=== PATIENT | female | born 1975 | race Caucasian/White ===

== ENCOUNTER 2017-10-03 21:00 | Emergency (ER) | payer BC ==
[2017-10-03] MEDS ORDERED: LIDOCAINE 2% 10 ML MDV SUBQ STA (21:40)
[2017-10-03] MEDS ORDERED: TETANUS/DIPHTHERIA/PERTUSSIS 0.5 ML SYRINGE IM ONE (21:47)
--- NOTE | 2017-10-03 22:05 | XRAY Report ---
Procedure Date: 10/03/2017 Accession Number: [id number] / [id number] Procedure: XR - Toe(s) RT CPT Code: FULL RESULT: EXAM: RIGHT TOE RADIOGRAPHY EXAM DATE: 10/03/2017 09:39 PM. CLINICAL HISTORY: Pain COMPARISON: None. TECHNIQUE: 3 views. FINDINGS: Bones: No fracture or focal bony lesion. Joints: No evidence of dislocation. Soft Tissues: No unexpected soft tissue findings. IMPRESSION: No evidence of fracture or dislocation. RADIA
--- NOTE | 2017-10-03 22:19 | ED Physician Documentation ---
PD HPI LOWER EXT INJURY - Stated complaint Stated Complaint: TOE INJURY - Chief complaint Chief Complaint: Wound - History obtained from History obtained from: Patient, Family - History of Present Illness PD HPI LOW EXT INJURY LOCATION: Right, Toe (2nd) Type of injury: Crush (steel bar) Where injury occurred: Home Timing - onset: How many hours ago (1) Timing - duration: Hours (1) Timing - details: Abrupt onset Pain level max: 8 Pain level now: 2 Improved by: Rest, Ice Worsened by: Moving, Palpating Associated symptoms: No: Weakness, Numbness, Tingling, Swelling Contributing factors: No: Anticoagulated Recently seen: Not recently seen - Additional information Additional information: Patient dropped a steel bar on her toe causing a laceration. 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 : None HEENT: None Psych: None Musculoskeletal: None Derm: None - Past Surgical History Past Surgical History: No HEENT: Tonsil/Adenoidectomy - Present Medications Home Medications: Ambulatory Orders Medication Instructions Recorded Confirmed Acyclovir 400 mg PO DAILY 08/23/14 11/01/15 Diphenhydramine HCl [Benadryl] 50 mg PO 5XD 08/23/14 08/23/14 Montelukast Sodium [Singulair] 10 mg PO DAILY 08/23/14 08/23/14 hydrOXYzine PAMOATE [Vistaril] 25 - 50 mg PO Q6H PRN #20 capsule 08/23/14 lamoTRIgine [Lamictal] 150 mg PO QDAC 08/23/14 11/01/15 predniSONE [Prednisone] 0 08/23/14 08/23/14 Dexamethasone 16 mg 11/01/15 Oxycodone HCl 11/01/15 - Allergies Allergies/Adverse Reactions: Allergies Allergy/AdvReac Type Severity Reaction Status Date / Time amoxicillin Allergy Rash Verified 10/03/17 21:20 Sulfa (Sulfonamide Allergy Hives Verified 10/03/17 21:20 Antibiotics) - Social History Does the pt smoke?: No Smoking Status: Never smoker Does the pt drink ETOH?: No Does the pt have substance abuse?: No - Immunizations Immunizations are current?: No Immunizations: TDAP >10years/unknown - POLST Patient has POLST: No PD ED PE NORMAL - Vitals Vital signs reviewed: Yes - General General: Alert and oriented X 3, No acute distress - Derm Derm: Warm and dry - Extremities Extremities: Other (Right foot - Diffuse tenderness over the right second toe. Also a small skin tear is present. Bleeding controlled. No subungual hematoma. Nail is intact NVI) - Neuro Neuro: Alert and oriented X 3 Results - Vitals Vitals: Oxygen O2 Source Room air - Rads (name of study) Right second toe x-ray Radiology: Prelim report reviewed, EMP read contemporaneously, See rad report ( Normal) Procedures - Laceration (location) Right second toe Length in cm: 0.5 Wound type: Curved, Superficial, Clean Neurovascular status: Sensory intact, Motor intact, Vascular intact Tendon involvement: Tendon intact. No: Tendon Injury Anesthesia: Lidocaine 2% Wound Preparation: Irrigated copiously NS Skin layer closure: Dermabond Other: Patient tolerated well, No complications, Neurovascular intact Complexity: Simple PD MEDICAL DECISION MAKING - ED course Complexity details: reviewed results, considered differential, d/w patient ED course: Patient is a 42-year-old female with a crush injury to the right second toe. No fracture on x-ray. Did have a small skin tear which was repaired with Dermabond. We will continue supportive care and follow-up with her doctor. Warnings of infection and instructions on wound care given at bedside. Also counseled on how to minimize scarring. Patient counseled regarding signs and symptoms for which I believe and urgent re-evaluation would be necessary. Patient with good understanding of and agreement to plan and is comfortable going home at this time This document was made in part using voice recognition software. While efforts are made to proofread this document, sound alike and grammatical errors may occur. Tdap given - Sepsis Event Vital Signs: Oxygen O2 Source Room air Departure - Departure Disposition: 01 Home, Self Care Clinical Impression: Injury, crush, toe Qualifiers: Encounter type: initial encounter Laterality: right Qualified Code(s): S97.101A - Crushing injury of unspecified right toe(s), initial encounter Condition: Good Instructions: ED Crush Injury Toe No Fx Follow-Up: Garett Tuttle MD [Primary Care Provider] - As Needed Comments: Return if you worsen. Keep the toe clean. Your xrays are normal tonight. Return especially for redness, swelling or drainage from the wound. Discharge Date/Time: 10/03/17 22:00
[2017-10-03 22:27] VITALS: BP 130/66
== END 2017-10-03 22:00 | disposition home or self-care (01) ==
LOC: ED 21:00
DX: S97.121A Crushing injury of right lesser toe(s), initial encounter (principal); W20.8XXA Other cause of strike by thrown, projected or falling object, initial encounter; Y92.009 Unspecified place in unspecified non-institutional (private) residence as the place of occurrence of the external cause
CPT/HCPCS: 12001; 73660; 90471; 99281; 99283

== ENCOUNTER 2018-04-24 16:41 | Outpatient (CLI) | payer BC ==
--- NOTE | 2018-04-25 00:45 | XRAY Report ---
Reason: LEFT ANKLE PAIN Procedure Date: 04/24/2018 Accession Number: [id number] / [id number] Procedure: XR - Ankle 3 View LT CPT Code: FULL RESULT: EXAM: LEFT ANKLE RADIOGRAPHY EXAM DATE: 04/24/2018 05:15 PM. CLINICAL HISTORY: LEFT ANKLE PAIN. COMPARISON: None. TECHNIQUE: 3 views. FINDINGS: Bones: Normal. No fractures or bone lesions. Joints: Normal. No effusion. No subluxations. The ankle mortise is normally aligned. Soft Tissues: Normal. No soft tissue swelling. IMPRESSION: Normal ankle radiography. RADIA
== END 2018-04-24 16:42 | disposition home or self-care (01) ==
LOC: DI 16:41
PROVIDERS: ATTEND Family Medicine
DX: M25.572 Pain in left ankle and joints of left foot (principal)

== ENCOUNTER 2019-07-17 15:07 | Outpatient (CLI) | payer OTHER ==
--- NOTE | 2019-07-18 09:34 | XRAY Report ---
Reason: COUGH, SOB Procedure Date: 07/17/2019 Accession Number: [id number] / [id number] Procedure: XR - Chest 2 View X-Ray CPT Code: 27668 Final Report FULL RESULT: EXAM: CHEST RADIOGRAPHY EXAM DATE: 07/17/2019 04:19 PM. CLINICAL HISTORY: Dyspnea and cough. COMPARISON: None. TECHNIQUE: 2 views. FINDINGS: Lungs/Pleura: No focal opacities evident. No pleural effusion. No pneumothorax. Normal volumes. Mediastinum: Heart and mediastinal contours are unremarkable. Other: None. IMPRESSION: Normal 2-view chest radiography. RADIA
== END 2019-07-17 15:08 | disposition home or self-care (01) ==
LOC: DI 15:07
PROVIDERS: ATTEND Family Medicine
DX: R06.02 Shortness of breath (principal)
CPT/HCPCS: 71046

== ENCOUNTER 2020-10-19 19:39 | Outpatient (CLI) | payer OTHER | END 2020-10-19 19:40 | disposition home or self-care (01) | LOC: COV 19:39 | PROVIDERS: ATTEND Urology | DX: Z01.812 Encounter for preprocedural laboratory examination (principal); Z20.822 Contact with and (suspected) exposure to COVID-19 ==

== ENCOUNTER 2021-02-14 14:52 | Outpatient (CLI) | payer OTHER ==
--- NOTE | 2021-02-14 16:38 | XRAY Report ---
PROCEDURE: Chest 2 View X-Ray INDICATIONS: DYSPNEA TECHNIQUE: 2 view(s) of the chest. COMPARISON: None. FINDINGS: Surgical changes and devices: None. Lungs and pleura: No pleural effusions or pneumothorax. Lungs are clear. Mediastinum: Mediastinal contours are normal. Heart size is normal. Bones and chest wall: No suspicious bony abnormalities. Soft tissues appear unremarkable. IMPRESSION: No acute pulmonary process. Reviewed by: Rima Rodriguez MD on 02/14/2021 4:37 PM [facility] Approved by: Rima Rodriguez MD on 02/14/2021 4:37 PM [facility] Station ID: [id number]
== END 2021-02-14 14:53 | disposition home or self-care (01) ==
LOC: DI 14:52
PROVIDERS: ATTEND Family Medicine
DX: R06.00 Dyspnea, unspecified (principal)

== ENCOUNTER 2021-05-24 12:17 | Emergency (ER) | payer OTHER ==
[2021-05-24 12:23] VITALS: BP 145/87
--- NOTE | 2021-05-24 12:50 | ED Physician Documentation ---
PD HPI UPPER EXT INJURY - Stated complaint Stated Complaint: LT ARM SWELLING/ITCHING - Chief complaint Chief Complaint: Ext Problem - History obtained from History obtained from: Patient - Additonal information Additional information: 3 days rash LUE p enbrel injection. Started 3 days after injection. This is 4th dose total, and each time has a bit more reaction to it. 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 : None HEENT: None Psych: None Musculoskeletal: None Derm: None - Past Surgical History Past Surgical History: No HEENT: Tonsil/Adenoidectomy - Present Medications Home Medications: Ambulatory Orders Medication Instructions Recorded Confirmed Acyclovir 400 mg PO DAILY 08/23/14 11/01/15 Montelukast Sodium [Singulair] 10 mg PO DAILY 08/23/14 08/23/14 diphenhydrAMINE HCl [Benadryl] 50 mg PO 5XD 08/23/14 08/23/14 hydrOXYzine PAMOATE [Vistaril] 25 - 50 mg PO Q6H PRN #20 capsule 08/23/14 lamoTRIgine [Lamictal] 150 mg PO QDAC 08/23/14 11/01/15 predniSONE [Prednisone] 0 08/23/14 08/23/14 Oxycodone HCl 11/01/15 dexAMETHasone [Dexamethasone] 16 mg 11/01/15 Doxepin [SINEquan] 10 mg PO TID PRN #20 cap 05/24/21 predniSONE [Deltasone] 60 mg PO DAILY 2 Days #6 tablet 05/24/21 - Allergies Allergies/Adverse Reactions: Allergies Allergy/AdvReac Type Severity Reaction Status Date / Time amoxicillin Allergy Rash Verified 05/24/21 12:24 hydroxychloroquine Allergy Rash Verified 05/24/21 12:24 oxycodone Allergy Hives Verified 05/24/21 12:24 Sulfa (Sulfonamide Allergy Hives Verified 05/24/21 12:24 Antibiotics) - Social History Does the pt smoke?: No Smoking Status: Never smoker Does the pt drink ETOH?: No Does the pt have substance abuse?: No - Immunizations Immunizations are current?: No Immunizations: TDAP >10years/unknown - POLST Patient has POLST: No PD ED PE NORMAL - Vitals Vital signs reviewed: Yes - General General: Alert and oriented X 3, No acute distress - Extremities Extremities: Other (Mildly red area about palm sized over the left posterior deltoid, not to angry.) - Neuro Neuro: Alert and oriented X 3, Normal speech Results - Vitals Vitals: Vital Signs - 24 hr 05/24/21 12:20 Temperature 36.3 C L Heart Rate 117 H Respiratory 16 Rate Blood Pressure 145/87 H O2 Saturation 98 Oxygen O2 Source Room air PD MEDICAL DECISION MAKING - ED course ED course: Symptoms more consistent with allergic reaction given that she has had crescendo symptoms of this with other injections and it is more itchy than painful and no fevers. Will treat with doxepin and steroids. Departure - Departure Disposition: 01 Home, Self Care Clinical Impression: Allergy to local anesthetic Condition: Good Record reviewed to determine appropriate education?: Yes Instructions: ED Allergic Reaction Local Other Prescriptions: predniSONE [Deltasone] 60 mg PO DAILY 2 Days #6 tablet Doxepin [SINEquan] 10 mg PO TID PRN #20 cap PRN Reason: Itching Comments: As discussed, this is more consistent with an allergic reaction to the Enbrel that it is an infection. That said if it becomes more painful or if you develop a fever please return for reevaluation. Continue Zyrtec and to that I am adding doxepin which is stronger than Benadryl for the itching and a few days worth of prednisone. Follow-up with your behavioral therapy coordinator for consideration for alternative therapies or adjustment to the therapy. I sent your prescription electronically to [facility] in [place].
[2021-05-24] MEDS ORDERED: predniSONE 20 MG TABLET PO STA (13:00)
== END 2021-05-24 13:46 | disposition home or self-care (01) ==
LOC: ED 12:17
DX: R21 Rash and other nonspecific skin eruption (principal); T41.1X5A Adverse effect of intravenous anesthetics, initial encounter
CPT/HCPCS: 99282; J7512

== ENCOUNTER 2021-08-19 17:11 | Emergency (ER) | payer OTHER ==
[2021-08-19 17:34] LABS: BASOPHILS % (AUTO) 0.3 %; EOSINOPHILS % (AUTO) 0.6 %; HCT - HEMATOCRIT 45.6 % (37.0-47.0); HGB - HEMOGLOBIN 15.6 g/dL (12.0-16.0); MEAN CORPUSCULAR HEMOGLOBIN 31.1 pg (27.0-31.0); MEAN CORPUSCULAR HGB CONC 34.2 g/dL (32.0-36.0); MEAN PLATELET VOLUME 9.8 fL (7.9-10.8); MONOCYTES % (AUTO) 4.5 %; NEUTROPHILS % (AUTO) 51.2 %; PLT - PLATELET COUNT 275 10^3/uL (130-450); RED BLOOD COUNT 5.01 10^6/uL (4.20-5.40); RED CELL DISTRIBUTION WIDTH 12.9 % (12.0-15.0); WHITE BLOOD COUNT 14.3 x10^3/uL (4.8-10.8)
[2021-08-19 17:36] LABS: ABNORMAL LYMPHS % (MANUAL) 0 %; BAND NEUTROPHILS % (MANUAL) 0 %
[2021-08-19 17:53] LABS: ALBUMIN 4.3 g/dL (3.2-5.5); ALBUMIN/GLOBULIN RATIO 1.4 (1.0-2.2); BILIRUBIN,TOTAL 0.6 mg/dL (0.2-1.0); CALCIUM 9.3 mg/dL (8.5-10.3); MAGNESIUM 1.9 mg/dL (1.7-2.8); POTASSIUM 3.5 mmol/L (3.5-5.0); TOTAL PROTEIN 7.4 g/dL (6.7-8.2)
--- OUTSIDE RECORDS SUMMARY | 2021-08-19 18:06 | EXTERNAL MEDICAL SUMMARY RPT | Continuity of Care Document ---
:1975 Author Organization [facility] Address [address] [place] [address] Phone Care Team Providers Name Role Phone Marry Unavailable Unavailable Allergies No information. Encounters No information. Medications date description facility [id number] {21 (Methylprednisolone 4 MG Oral Table t) } [facility] Problems Procedures date description facility [id number] [facility] Results No information. Vital Signs date measurement value source 20210814 weight_standard 88 lb 20210814 weight_metric 39.91 kg 20210814 temperature_standard 97 F 20210814 temperature_metric 36.11 C 20210814 respiration_rate 29 /min 20210814 height_standard 67 in 20210814 height_metric 170.18 cm 20210814 heart_rate 97 /min 20210814 BP_systolic 151 mm[Hg] 20210814 BP_diastolic 90 mm[Hg] 20210814 BMI 30.4 kg/m2
--- NOTE | 2021-08-19 18:22 | XRAY Report ---
PROCEDURE: Chest 1 View X-Ray INDICATIONS: Chest pain TECHNIQUE: One view of the chest was acquired. COMPARISON: 02/14/2021, 07/17/2019 FINDINGS: Surgical changes and devices: None. Lungs and pleura: No pleural effusions or pneumothorax. Lungs are clear. Mediastinum: Mediastinal contours appear normal. Heart size is normal. Bones and chest wall: No suspicious bony lesions. Overlying soft tissues appear unremarkable. IMPRESSION: No acute cardiopulmonary abnormality. Reviewed by: Donaldo Cobos MD on 08/19/2021 6:20 PM PDT Approved by: Doanldo Cobos MD on 08/19/2021 6:20 PM PDT Station ID: [id number]
[2021-08-19 18:30] LABS: BASOPHILS # (MANUAL) 0.1 10^3/uL (0-0.1); BASOPHILS % (MANUAL) 1 %; EOSINOPHILS # (MANUAL) 0.1 10^3/uL (0-0.7); LYMPHOCYTES # (MANUAL) 6.4 10^3/uL (1.5-3.5); LYMPHOCYTES % (MANUAL) 31 %; MONOCYTES # (MANUAL) 0.4 10^3/uL (0.0-1.0); NEUTROPHILS # (MANUAL) 7.2 10^3/uL (1.5-6.6); PLATELET ESTIMATE, MANUAL NORMAL (130-450,000) (NORMAL); PLATELET MORPHOLOGY NORMAL APPEARANCE (NORMAL); RBC MORPHOLOGY (MULTIPLE) NORMAL APPEARANCE (NORMAL); REACTIVE LYMPHS % (MANUAL) 14 %; WBC MORPHOLOGY (MULTIPLE) NORMAL APPEARANCE (NORMAL)
[2021-08-19 18:31] LABS: DIFFERENTIAL COMMENT MANUAL DIFFERENTIAL
--- NOTE | 2021-08-19 19:23 | ED Physician Documentation ---
History of Present Illness - Stated complaint Stated Complaint: HIGH BP,SOA,CRAMPING,HEADACHE - Chief complaint Chief Complaint: Cardiac - Additonal information Additional information: 46-year-old female presents emergency department for evaluation of abdominal bloating and feeling gassy as well as concerns of her blood pressures been elevated. About 10 days ago she did receive an infusion for RA through the clinic and [place]. About 2 days later she began feeling unwell and was seen at [facility]. While there she received IV fluids Benadryl Pepcid and was discharged on an methylprednisolone Dosepak for suspicion of an allergic reaction. Despite taking this she is continued to feel unwell and has been checking her blood pressures at home and found that they are essentially 160/110. She denies any previous history of hypertension. She denies chest pain or shortness of air. She states that her abdomen is bloated but she does not have diarrhea or dysuria. Review of Systems Constitutional: denies: Fever, Chills Nose: reports: Reviewed and negative Throat: reports: Reviewed and negative Cardiac: reports: Reviewed and negative Respiratory: reports: Reviewed and negative GI: reports: Abdominal Pain. 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 : None HEENT: None Psych: None Musculoskeletal: None Derm: None - Past Surgical History Past Surgical History: No HEENT: Tonsil/Adenoidectomy - Present Medications Home Medications: Ambulatory Orders Medication Instructions Recorded Confirmed Acyclovir 400 mg PO DAILY 08/23/14 11/01/15 Montelukast Sodium [Singulair] 10 mg PO DAILY 08/23/14 08/23/14 diphenhydrAMINE HCl [Benadryl] 50 mg PO 5XD 08/23/14 08/23/14 hydrOXYzine PAMOATE [Vistaril] 25 - 50 mg PO Q6H PRN #20 capsule 08/23/14 lamoTRIgine [Lamictal] 150 mg PO QDAC 08/23/14 11/01/15 predniSONE [Prednisone] 0 08/23/14 08/23/14 Oxycodone HCl 11/01/15 dexAMETHasone [Dexamethasone] 16 mg 11/01/15 Doxepin [SINEquan] 10 mg PO TID PRN #20 cap 05/24/21 predniSONE [Deltasone] 60 mg PO DAILY 2 Days #6 tablet 05/24/21 - Allergies Allergies/Adverse Reactions: Allergies Allergy/AdvReac Type Severity Reaction Status Date / Time amoxicillin Allergy Rash Verified 05/24/21 12:24 hydroxychloroquine Allergy Rash Verified 05/24/21 12:24 oxycodone Allergy Hives Verified 05/24/21 12:24 Sulfa (Sulfonamide Allergy Hives Verified 05/24/21 12:24 Antibiotics) - Social History Does the pt smoke?: No Smoking Status: Never smoker Does the pt drink ETOH?: No Does the pt have substance abuse?: No - Immunizations Immunizations are current?: No Immunizations: TDAP >10years/unknown - POLST Patient has POLST: No PD ED PE NORMAL - General General: Alert and oriented X 3, No acute distress, Well developed/nourished - HEENT HEENT: Atraumatic, Ears normal - Neck Neck: Supple, no meningeal sign, No JVD - Cardiac Cardiac: RRR, No murmur - Respiratory Respiratory: No respiratory distress, Clear bilaterally - Abdomen Abdomen: Normal bowel sounds, Soft, Non tender, Non distended - Derm Derm: Normal color, Warm and dry, No rash - Extremities Extremities: No deformity - Neuro Neuro: Alert and oriented X 3 Eye Opening: Spontaneous Motor: Obeys Commands Verbal: Oriented GCS Score: 15 - Psych Psych: Normal mood Results - Vitals Vitals: Vital Signs - 24 hr 08/19/21 17:18 Temperature 36.6 C Heart Rate 90 Respiratory 18 Rate Blood Pressure 153/112 H O2 Saturation 99 Oxygen O2 Source Room air - EKG (time done) 1719 Rate: Rate (enter#) (99) Rhythm: NSR Peer[place]: Normal Intervals: Normal MS. No: Prolonged QT QRS: Normal Ischemia: Non specific changes (T wave flattening) Compare to prior EKG: Old EKG unavailable Computer interpretation: Agree with computer - Labs Labs: Laboratory Tests 08/19/21 08/19/21 08/19/21 17:29 17:29 17:29 WBC 14.3 H RBC 5.01 Hgb 15.6 Hct 45.6 MCV 91.0 MCH 31.1 H MCHC 34.2 RDW 12.9 Plt Count 275 MPV 9.8 Neut # (Auto) Not Reportable Lymph # (Auto) Not Reportable Whitfield # (Auto) Not Reportable Eos # (Auto) Not Reportable Baso # (Auto) Not Reportable Absolute Nucleated RBC Not Reportable Total Counted 100 Band Neuts % (Manual) 0 Reactive Lymphs % (Man) 14 Abnorm Lymph % (Manual) 0 Nucleated RBC % Not Reportable Neutrophils # (Manual) 7.2 H Lymphocytes # (Manual) 6.4 H Monocytes # (Manual) 0.4 Eosinophils # (Manual) 0.1 Basophils # (Manual) 0.1 Differential Comment MANUAL DIFFERENTIAL WBC Morphology NORMAL APPEARANCE Platelet Estimate NORMAL (130-450,000) Platelet Morphology NORMAL APPEARANCE RBC Morph Micro Appear NORMAL APPEARANCE Sodium 141 Potassium 3.5 Chloride 101 Carbon Dioxide 27 Anion Gap 13.0 BUN 15 Creatinine 1.0 Estimated GFR (MDRD) 59 L Glucose 101 H Calcium 9.3 Magnesium 1.9 Total Bilirubin 0.6 AST 19 ALT 21 Alkaline Phosphatase 47 Troponin I High Sens 3.7 C-Reactive Protein 1.0 B-Natriuretic Peptide Total Protein 7.4 Albumin 4.3 Globulin 3.1 Albumin/Globulin Ratio 1.4 Lipase 41 08/19/21 17:29 WBC RBC Hgb Hct MCV MCH MCHC RDW Plt Count MPV Neut # (Auto) Lymph # (Auto) Whitfield # (Auto) Eos # (Auto) Baso # (Auto) Absolute Nucleated RBC Total Counted Band Neuts % (Manual) Reactive Lymphs % (Man) Abnorm Lymph % (Manual) Nucleated RBC % Neutrophils # (Manual) Lymphocytes # (Manual) Monocytes # (Manual) Eosinophils # (Manual) Basophils # (Manual) Differential Comment WBC Morphology Platelet Estimate Platelet Morphology RBC Morph Micro Appear Sodium Potassium Chloride Carbon Dioxide Anion Gap BUN Creatinine Estimated GFR (MDRD) Glucose Calcium Magnesium Total Bilirubin AST ALT Alkaline Phosphatase Troponin I High Sens C-Reactive Protein B-Natriuretic Peptide 6 Total Protein Albumin Globulin Albumin/Globulin Ratio Lipase - Rads (name of study) cxr Radiology: Final report received PD MEDICAL DECISION MAKING - ED course Complexity details: reviewed results, re-evaluated patient, considered differential, d/w patient ED course: 46-year-old female comes to the ER for evaluation of concerns that she has elevated blood pressure readings at home as well as bloating in her abdomen. T his follows receiving a biologic infusion for treatment of her RA about 10 days ago. She was also seen about 1 week ago at [facility] and thought to be having an allergic reaction to the infusion and was started on a methylprednisolone Dosepak. Since then she has been monitoring her blood pressure and noticed higher than normal readings though she denies any chest pain or shortness of air. She is also endorsing that she has some abdominal bloating and discomfort though no abdominal tenderness was elicited on my exam today. She did receive screening labs that were essentially normal sparing a mild white blood cell count elevation that I am attributing to steroid use. Chest x-ray is free of focal pathology. Screening EKG and high-sensitivity troponin were also negative. Given that no abdominal tenderness was elicited we did defer advanced imaging. There are no findings at this time to suggest hypertensive urgency/emergency and I declined to initiate blood pressure medications through the emergency department. I have encouraged her to closely monitor her blood pressure at home and follow-up with her primary care provider. Emergent and worrisome return precautions were otherwise discussed. Departure - Departure Disposition: Home, Self Care Clinical Impression: Elevated blood pressure reading Condition: Stable Record reviewed to determine appropriate education?: Yes Comments: Heena you are seen tonight in the emergency department because you have had some elevated blood pressure readings at home as well as some bloating in your abdomen. You did recently receive a infusion for treatment of your RA. Today your screening labs are all essentially normal though your white blood cell count is 14. This is mildly elevated did but we often see this in patients who have been taking steroids for short period of time. Your screening EKG and chest x-ray today are all essentially normal without any worrisome findings to suggest that you are having a heart attack, or have pneumonia or heart failure. You do have some mildly elevated blood pressure readings but there is no findings today to suggest concerns that you are having a stroke or developing kidney failure due to this. I do encourage you to take your blood pressure twice daily and keep a log of this. Follow-up closely with your primary care doctor to determine if they would like to start you on blood pressure medications. It is possible that some anxiety is contributing to your symptoms though receiving a new medication like a biologic can make people feel uncomfortable. If at any point you feel that your symptoms are worsening, you have difficulty breathing, severe chest pain a racing heart or any fainting episodes then please return immediately to the emergency department. Otherwise I do recommend that you get plenty of rest at home and stay well-hydrated.
[2021-08-19 19:30] VITALS: BP 138/108
== END 2021-08-19 19:31 | disposition home or self-care (01) ==
LOC: ED 17:11
DX: R03.0 Elevated blood-pressure reading, without diagnosis of hypertension (principal)
CPT/HCPCS: 36415; 80053; 83690; 83735; 83880; 84484; 85025; 86140; 93005; 99284

== ENCOUNTER 2021-09-04 08:00 | Outpatient (CLI) | payer OTHER | END 2021-09-04 23:59 | disposition home or self-care (01) | LOC: LAB 08:00 | PROVIDERS: ATTEND Physician Assistant | DX: R05.9 Cough, unspecified (principal); Z20.822 Contact with and (suspected) exposure to COVID-19 ==

== ENCOUNTER 2022-02-02 14:02 | Emergency (ER) | payer OTHER ==
[2022-02-02 14:41] LABS: BASOPHILS % (AUTO) 0.8 %; EOSINOPHILS # (AUTO) 0.1 10^3/uL (0.0-0.7); EOSINOPHILS % (AUTO) 1.5 %; HCT - HEMATOCRIT 47.3 % (37.0-47.0); HGB - HEMOGLOBIN 15.7 g/dL (12.0-16.0); LYMPHOCYTES % (AUTO) 38.4 %; MEAN CORPUSCULAR HEMOGLOBIN 30.1 pg (27.0-31.0); MEAN CORPUSCULAR HGB CONC 33.2 g/dL (32.0-36.0); MEAN CORPUSCULAR VOLUME 90.6 fL (81.0-99.0); MEAN PLATELET VOLUME 9.7 fL (7.9-10.8); MONOCYTES # (AUTO) 0.3 10^3/uL (0.0-1.0); MONOCYTES % (AUTO) 5.3 %; NEUTROPHILS # (AUTO) 2.8 10^3/uL (1.5-6.6); NEUTROPHILS % (AUTO) 53.8 %; PLT - PLATELET COUNT 232 10^3/uL (130-450); RED BLOOD COUNT 5.22 10^6/uL (4.20-5.40); RED CELL DISTRIBUTION WIDTH 12.7 % (12.0-15.0); WHITE BLOOD COUNT 5.3 x10^3/uL (4.8-10.8)
[2022-02-02 14:56] LABS: ALBUMIN 4.2 g/dL (3.2-5.5); ALBUMIN/GLOBULIN RATIO 1.4 (1.0-2.2); BILIRUBIN,TOTAL 0.8 mg/dL (0.2-1.0); CREATININE 0.8 mg/dL (0.4-1.0); TOTAL PROTEIN 7.1 g/dL (6.7-8.2)
--- NOTE | 2022-02-02 15:09 | XRAY Report ---
PROCEDURE: Chest 2 View X-Ray INDICATIONS: chest pain TECHNIQUE: 2 views of the chest were obtained. COMPARISON: Chest x-ray 08/19/2021 FINDINGS: Cardiac mediastinal silhouette is normal in size and contour. No effusions, consolidations or pneumot horax. Osseous and soft tissue structures are unremarkable. IMPRESSION: No acute pulmonary process. Reviewed by: Rima Rodriguez MD on 02/02/2022 3:08 PM PDT Approved by: Rima Rodriguez MD on 02/02/2022 3:08 PM PDT Station ID: [id number]
[2022-02-02 15:10] LABS: CALCIUM 9.4 mg/dL (8.5-10.3); POTASSIUM 4.3 mmol/L (3.5-5.0)
[2022-02-02] MEDS ORDERED: IPRATROPIUM/ALBUTEROL 3 ML NEB INH STA (15:56)
--- NOTE | 2022-02-02 16:20 | ED Physician Documentation ---
History of Present Illness - Stated complaint Stated Complaint: CHEST PX, SOA - Chief complaint Chief Complaint: Cardiac - History obtained from History obtained from: Patient - History of Present Illness Timing: Today Pain level max: 5 Pain level now: 5 - Additonal information Additional information: Patient is a 46-year-old female who presents to the emergency department complaining of chest pain intermittently for the past several days. She states that it feels like her chest is tight and she is having a hard time breathing. She has had some coughing as well. She states it feels sharp and stabbing. Has had mild congestion and cough. No nausea or vomiting. No history of acute coronary syndrome. No leg swelling. No history of blood clots. Patient has used inhalers in the past. She states she had asthma as a child. Review of Systems Constitutional: denies: Fever, Chills Cardiac: reports: Palpitations (She has had intermittent palpitations for about the past 6 months. She states that her heart rate is routinely in the 110s to 120s. She has been followed by her doctor for this) Respiratory: reports: Dyspnea, Cough GI: denies: Abdominal Pain, Nausea, Vomiting, Diarrhea Skin: denies: Rash Musculoskeletal: denies: Neck pain, Back pain Neurologic: denies: Headache PD PAST MEDICAL HISTORY - Past Medical History Cardiovascular: None Respiratory: None Neuro: None Endocrine/Autoimmune: None GI: Other [employer]: None : None HEENT: None Psych: None Musculoskeletal: None Derm: None - Past Surgical History Past Surgical History: No HEENT: Tonsil/Adenoidectomy - Present Medications Home Medications: Ambulatory Orders Medication Instructions Recorded Confirmed Acyclovir 400 mg PO DAILY 08/23/14 11/01/15 Montelukast Sodium [Singulair] 10 mg PO DAILY 08/23/14 08/23/14 diphenhydrAMINE HCl [Benadryl] 50 mg PO 5XD 08/23/14 08/23/14 hydrOXYzine PAMOATE [Vistaril] 25 - 50 mg PO Q6H PRN #20 capsule 08/23/14 lamoTRIgine [Lamictal] 150 mg PO QDAC 08/23/14 11/01/15 predniSONE [Prednisone] 0 08/23/14 08/23/14 Oxycodone HCl 11/01/15 dexAMETHasone [Dexamethasone] 16 mg 11/01/15 Doxepin [SINEquan] 10 mg PO TID PRN #20 cap 05/24/21 predniSONE [Deltasone] 60 mg PO DAILY 2 Days #6 tablet 05/24/21 Albuterol Sulf [Ventolin Hfa 1 - 2 puffs INH Q4HR PRN #1 each 02/02/22 Inhaler] - Allergies Allergies/Adverse Reactions: Allergies Allergy/AdvReac Type Severity Reaction Status Date / Time amoxicillin Allergy Rash Verified 05/24/21 12:24 hydroxychloroquine Allergy Rash Verified 05/24/21 12:24 oxycodone Allergy Hives Verified 05/24/21 12:24 Sulfa (Sulfonamide Allergy Hives Verified 05/24/21 12:24 Antibiotics) - Social History Does the pt smoke?: No Smoking Status: Never smoker Does the pt drink ETOH?: No Does the pt have substance abuse?: No - Immunizations Immunizations are current?: No Immunizations: TDAP >10years/unknown - POLST Patient has POLST: No PD ED PE NORMAL - Vitals Vital signs reviewed: Yes - General General: Alert and oriented X 3, No acute distress, Well developed/nourished - HEENT HEENT: Moist mucous membranes - Neck Neck: Supple, no meningeal sign - Cardiac Cardiac: RRR, Strong equal pulses - Respiratory Respiratory: No respiratory distress, Other (Diminished breath sounds bilaterally.) - Abdomen Abdomen: Soft, Non tender, Non distended - Derm Derm: Warm and dry - Extremities Extremities: No edema - Neuro Neuro: Alert and oriented X 3 - Psych Psych: Normal mood, Normal affect Results - Vitals Vitals: Vital Signs - 24 hr 02/02/22 02/02/22 02/02/22 15:53 17:16 17:55 Heart Rate 106 H 106 H 110 H Respiratory 19 23 18 Rate Blood Pressure 126/90 H 135/81 H 119/93 H O2 Saturation 96 100 100 Oxygen O2 Source Room air - EKG (time done) 1420 Rate: Rate (enter#) (116) Rhythm: Sinus tachycardia [place]: Normal Intervals: Normal NV QRS: Normal Ischemia: Normal ST segments - Labs Labs: Laboratory Tests 02/02/22 02/02/22 02/02/22 14:36 14:36 14:36 WBC 5.3 RBC 5.22 Hgb 15.7 Hct 47.3 H MCV 90.6 MCH 30.1 MCHC 33.2 RDW 12.7 Plt Count 232 MPV 9.7 Neut # (Auto) 2.8 Lymph # (Auto) 2.0 [place] # (Auto) 0.3 Eos # (Auto) 0.1 Baso # (Auto) 0.0 Absolute Nucleated RBC 0.00 Nucleated RBC % 0.0 Sodium 136 Potassium 4.3 Chloride 102 Carbon Dioxide 24 Anion Gap 10.0 BUN 11 Creatinine 0.8 Estimated GFR (MDRD) 77 L Glucose 181 H Calcium 9.4 Total Bilirubin 0.8 AST 37 ALT 42 Alkaline Phosphatase 35 L Troponin I High Sens 2.4 Total Protein 7.1 Albumin 4.2 Globulin 2.9 Albumin/Globulin Ratio 1.4 Lipase 43 - Rads (name of study) cxr Radiology: Final report received, EMP read contemporaneously, See rad report (no acute abnormality) PD MEDICAL DECISION MAKING - ED course Complexity details: reviewed results, re-evaluated patient, considered differential, d/w patient ED course: 46-year-old female presents to the emergency department with chest pain, mainly at night feels like she is having a hard time catching her breath at times. No risk factors for PE. No leg swelling or edema. No calf pain. She has used inhalers in the past, she was given Toradol and albuterol here. She feels like her symptoms have improved, heart rate decreased. We will prescribe an inhaler for home and have her follow-up with her doctor. No evidence of acute coronary syndrome. Patient is well-appearing, nontoxic. Afebrile. Patient counseled regarding signs and symptoms for which I believe and urgent re-evaluation would be necessary. Patient with good understanding of and agreement to plan and is comfortable going home at this time This document was made in part using voice recognition software. While efforts are made to proofread this document, sound alike and grammatical errors may occur. Departure - Departure Disposition: 01 Home, Self Care Clinical Impression: Viral URI Asthma exacerbation Qualifiers: Asthma severity: unspecified severity Asthma persistence: unspecified Qualified Code(s): J45.901 - Unspecified asthma with (acute) exacerbation Condition: Good Instructions: ED Reactive Airway Disease, ED Viral Syndrome Follow-Up: Garett Tuttle MD [Primary Care Provider] - Prescriptions: Albuterol Sulf [Ventolin Hfa Inhaler] 1 - 2 puffs INH Q4HR PRN #1 each PRN Reason: Shortness Of Air/Wheezing Comments: Your prescription was sent to [facility] in [place]. Please follow-up with your doctor for further care. Return if you worsen. This should improve over the next few days. Discharge Date/Time: 02/02/22 18:05
[2022-02-02] MEDS ORDERED: KETOROLAC 60 MG/2 ML VIAL IM STA (16:39)
[2022-02-02] MEDS ORDERED: DEXAMETHASONE 10 MG/ML VIAL PO STA (17:40)
[2022-02-02] MEDS ORDERED: CHERRY SYRUP 10 ML UDC PO ONE (17:40)
[2022-02-02 17:56] VITALS: BP 119/93
== END 2022-02-02 18:05 | disposition home or self-care (01) ==
LOC: ED 14:02
DX: J06.9 Acute upper respiratory infection, unspecified (principal); J45.901 Unspecified asthma with (acute) exacerbation
CPT/HCPCS: 36415; 71046; 80053; 83690; 84484; 85025; 93005; 96372; 99284; A9270

== ENCOUNTER 2023-08-24 13:41 | Outpatient (CLI) | payer OTHER ==
--- NOTE | 2023-08-24 17:49 | XRAY Report ---
PROCEDURE: Chest 2V INDICATIONS: PNEUMONIA TECHNIQUE: 2 views of the chest were acquired. COMPARISON: 02/02/2022 FINDINGS: Surgical changes and devices: None. Lungs and pleura: No pleural effusions or pneumothorax. Lungs are clear. Mediastinum: Mediastinal contours appear normal. Heart size is normal. Bones and chest wall: No suspicious bony lesions. Overlying soft tissues appear unremarkable. IMPRESSION: No acute cardiopulmonary process. Reviewed by: Diana Kimble MD on 08/24/2023 5:48 PM PDT Approved by: Diana Kimble MD on 08/24/2023 5:48 PM PDT Station ID: [id number]
== END 2023-08-24 13:42 | disposition home or self-care (01) ==
LOC: DI 13:41
PROVIDERS: ATTEND Physician Assistant
DX: J18.9 Pneumonia, unspecified organism (principal)